=== PATIENT | male | born 2000 | race African-American/Black ===

== ENCOUNTER 2021-04-29 13:27 | Observation (INO) | payer OTHER, SELFPAY ==
[2021-04-29 18:44] VITALS: BMI 24.8
[2021-04-29 19:00] VITALS: BP 117/59; PULSE 96; RESP 18; TEMP 37.6; O2SAT 99
[2021-04-29] MEDS: PIPERACILLIN/TAZO 3.375 GM in SODIUM CHLORIDE 0.9% 100 ML 25 ML IV (19:09)
[2021-04-29] MEDS: SODIUM CHLORIDE 0.45% 1,000 ML 100 ML IV (19:09)
--- NOTE | 2021-04-29 22:52 | PC.NURSE ---
Addendum entered by Raquel Soria R.N. 04/29/21 22:55: COVID 19 results in paper chart from [facility], is negative. Original Note: Admission note: Patient arrived via stretcher from [facility] ED accompanied by EMS personnel, transferred self to inpatient bed. AxOx3, can make needs known. No recent hx of falls. C/o 3 out of 10 abdominal pain, declines intervention. Denies chest pain, SOB, or nausea/vomiting. Patient general diet at time of admission, given snacks, notified will be NPO at midnight. Low fall risk. Call light in reach.
[2021-04-30] VITALS (14 sets, daily range): BP systolic 100–148; BP diastolic 44–92; PULSE 60–87; RESP 14–20; TEMP 35.5–37.1; O2SAT 95–100; BMI 24.8
--- NOTE | 2021-04-30 | PATH_ITS ---
[facility] Accession Number: [id number] . 01 Material submitted: . appendix - APPENDIX . 02 Diagnosis: Appendix, Appendectomy: Acute appendicitis with reactive lymphoid hyperplasia. MRV 05/03/2021 1646 Local . 02 Comment: As part of routine quality control microbiology supervisor, Dr. Wan also reviewed this case and agrees with the diagnosis. . 02 Electronically signed: . Traci Andre MD, Pathologist NPI- [id number] . 01 Gross description: . The specimen is received in formalin and labeled with appendix. It consists of a 13.4 cm in length x 1.7 cm in greatest dimension intact appendix, stapled at one end. The serosa is yellow-hensley and diffusely congested. Sectioning reveals yellow-hensley focally hemorrhagic mucosa, a lumen that dilates to 1.0 cm in diameter and ventura that range from 0.2 to 0.8 cm in thickness. Supervisor Lamp [place]ades sections are submitted. . Summary of Sections: A1 = Appendix, resection margin, one piece. A2 = Appendix, bisected tip, two pieces. A3-A4 = Appendix, serially sectioned, two pieces. ([id number]) /[facility] 05/01/2021 1522 Local . 02 Pathologist provided ICD-10: K35.80 . 02 CPT . 333494 Performed at: 01 [facility] [address], [place], [place] [id number] MD Vciente Lilly MD Phone: [phone] Performed at: 02 [facility] [address] [place], [place] [id number] MD Judith Moore MD Phone: [phone]
[2021-04-30] MEDS: ACETAMINOPHEN 325 MG TABLET 650 MG PO ×4 (00:25→23:57)
[2021-04-30] MEDS: IBUPROFEN 600 MG TABLET PO ×4 (00:25→23:56)
--- NOTE | 2021-04-30 01:27 | PC.NURSE ---
Patient is alert and oriented. Breath sounds CTA with RA sat of 97%. HRR. Denied nausea. BT present and abdomen is soft, nontender. Patient denied pain at time of assessment. Voiding per urinal; denied dysuria, frequency or urgency. Moves self in bed. Gait not assessed at this time. NPO since 0000 except for meds; patient verbalizes understanding. Wearing bilateral calf SCD's. Fall risk score is low.
[2021-04-30] MEDS: PIPERACILLIN/TAZO 3.375 GM in SODIUM CHLORIDE 0.9% 100 ML 25 ML IV ×2 (03:16→11:29)
[2021-04-30] MEDS: SODIUM CHLORIDE 0.45% 1,000 ML 100 ML IV (04:38)
[2021-04-30 04:59] LABS: Add Manual Diff / Slide Review NO; Basophils Absolute Auto 0 /uL (0-100); Basophils Percent Auto 0.4 % (0-2); Eosinophils Absolute Auto 0 /uL (0-450); Eosinophils Percent Auto 0.4 % (2-4); Hematocrit 36.7 % (41-53); Hemoglobin 12.3 g/dL (13.5-17.5); Lymphocytes Absolute Auto 1600 /uL (1100-4500); Mean Corpuscular HGB Conc 33.4 % (30-36); Mean Corpuscular Hemoglobin 30.5 PG (26-34); Mean Corpuscular Volume 91.3 fL (80-100); Monocytes Absolute Auto 1100 /uL (0-900); Monocytes Percent Auto 15.4 % (3-14); Neutrophils Absolute Auto 4200 /uL (1500-7000); Neutrophils Percent Auto 60.8 % (50-75); Platelet Count 286 X10^3/uL (150-400); Red Blood Cell Count 4.02 X10^6/uL (4.5-5.9); Red Cell Distribution Width 13.6 % (11.6-14.8); White Blood Cell Count 6.8 X10^3/uL (4.5-11.0)
--- NOTE | 2021-04-30 09:54 | PM.HP.1 ---
History of Present Illness History of Present Illness Date Patient Seen: 04/30/21 Time Patient Seen: 09:55 Chief complaint: APPENDICITIS Narrative: 2 weeks of intermittent RLQ pain, sharp and cramping. Presented with persistent RLQ pain to Thursday where CT scan confirmed acute appendicitis. Anorexia, no diarrhea or emesis. Pain better now after IV antibiotics overnight. Patient History Comment: heart murmur Family & Social History Social History: household members none Safety & Behavioral: Feels Safe in Current Yes Environment Been Physically Hurt or No Threatened By a Person Suicidal Ideation Description None Suicide Plan Description No Plan Tobacco & Substance use: Tobacco type cigars Smoking Status Current some day smoker alcohol intake current alcohol intake frequency a few times a month Substance Use Type marijuana Meds Home Medications and Allergies Home Medications Medication Instructions Recorded Confirmed Type No Known Home Medications 04/29/21 04/29/21 History Allergies Allergy/AdvReac Type Severity Reaction Status Date / Time No Known Drug Allergies Allergy Verified 04/29/21 18:51 Review of Systems Review of Systems ROS: Yes All systems reviewed with the patient and are negative except as otherwise documented Exam Vital Signs (past 8 hours): - 04/30/21 08:11 04/30/21 09:43 Temperature 98.8 F Pulse Rate 87 72 Respiratory Rate 17 Blood Pressure 124/56 L Pulse Oximetry 97 99 Oxygen Delivery Method Room Air Oxygen Flow Rate 0 Const General: cooperative and healthy appearing Nutritional Appearance: average body habitus HENMT Head: normal to inspection Eyes General: appearance normal, both eyes and all related structures Neck Neck: trachea midline Chest Chest: normal inspection of the chest Resp Effort & Inspection: normal respiratory effort and able to speak in complete sentences Cardio Rate: regular rate Rhythm: regular rhythm GI Inspection: normal to inspection Palpation: soft and tender (mild RLQ tenderness to palpation) Skin General: no rashes or lesions noted Neuro General: patient alert and patient oriented x3 Cognition: normal cognition Speech: speech normal Extrem General: normal to inspection and full ROM Psych Appearance: grossly normal Judgment: judgment good Objective Labs Result Diagrams: 04/30/21 04:40 Labs: Laboratory Results - last 24 hr 04/30/21 04:40 WBC 6.8 RBC 4.02 L Hgb 12.3 L Hct 36.7 L MCV 91.3 MCH 30.5 MCHC 33.4 RDW 13.6 Plt Count 286 Neut % (Auto) 60.8 Lymph % (Auto) 23.0 L [place] % (Auto) 15.4 H Eos % (Auto) 0.4 L Baso % (Auto) 0.4 Neut # (Auto) 4200 Lymph # (Auto) 1600 [place] # (Auto) 1100 H Eos # (Auto) 0 Baso # (Auto) 0 Assessment & Plan Assessment & Plan narrative: acute appendicitis. Lap appy, IV antibiotics until then COVID-19 COVID-19 status: Negative Quality VTE Deep Vein Thrombosis/Pulmonary Embolism Present on Admission: No
--- NOTE | 2021-04-30 14:42 | CM.DANOTE ---
Young and healthy patient here for appendectomy by Dr. Hernández late this afternoon. He was on the phone when I stopped in and so conversation was pleasant but brief. His plan is to go home at discharge and denies any needs or need for CM.
--- NOTE | 2021-04-30 14:43 | SUR.OPER ---
Supine on padded OR bed, head on pillow, safety belt at thigh, left arm padded and tucked at side. Right arm secured on padded arm board <90 degrees abduction. Legs uncrossed. Padded footboard in place. Tape over blanket to secure lower legs.
[2021-04-30 14:44] LABS: COVID19 - ADMIT (NP swab/PCR) Negative (Negative)
--- NOTE | 2021-04-30 14:53 | PC.NURSE ---
Pt A& O x3. LS CTA, VSS, afebrile on RA. Pt denies abdominal pain, BS+x4. Voiding without difficulty. Pt ambulating with steady gait, tolerating antibiotics well. Reports being very hungry after having been NPO status for so long. Pt gives permission to discuss updates with medical provider from [employer] [facility] @[phone]. Pt will need a letter of restrictions, and healing time post surgery as the cruise does not provide a light duty positions and will arrange for him to have a flight home until he can be back to full duty. Endorsed to oncoming RN, and CM. Patient taken to pre op approximately 1410.
--- NOTE | 2021-04-30 15:07 | SUR.HOLD ---
Daria ROMERO OR aware that patient did not receive pre-op Acetaminophen.
[2021-04-30] MEDS: ACETAMINOPHEN IV 1,000 MG/100 ML VIAL 400 MG IV (15:30)
[2021-04-30] MEDS: BUPIVACAINE 0.25% W/ EPI 30 ML VIAL INJ (15:31)
--- NOTE | 2021-04-30 16:14 | PM.OP.1 ---
Operative Date/Time/Diagnoses Date of procedure: 04/30/21 Time of procedure: 16:14 Pre-op diagnosis: appendicitis Post-op diagnosis: same Procedure & Clinicians Procedure: lap appy Same procedure as scheduled: Yes Indications: appendicitis Surgeon: Anni Hernández Click Yes if Unassisted: Yes Anesthesia Type: General Operative Notes Findings: Acute on chronic appendicitis, suppurative stage II Closure Type: primary Specimen(s): other (Appendix) Estimated Blood Loss (mL): 10 Procedure in detail: Prep diagnosis acute appendicitis Postop diagnosis: Same Procedure: Laparoscopic appendectomy Surgeon: Elinor Hernández MD Anesthetic: General with ET tube intubation along with local Findings: Acute on chronic appendicitis. Stage II suppurative Procedure: Patient is placed in a supine position. Prepped and draped in a sterile fashion. Infraumbilical port site was placed using an open technique and a 12 mm port. Insufflation began all other ports were placed under direct vision including a 5 mm port in the suprapubic area and a 5 mm port in left lateral abdomen. Appendix was identified and lifted cephalad for exposure. Blunt dissection along with electrocautery was used to separate the appendix from the chronic inflammation that welded to the lateral attachments as well as the terminal ileum. The mesentery of the appendix was then taken down with electrocautery. The base of the appendix was healthy in nature and a blue load ION stapling device was used for amputation. The amputated appendix was placed into an Endo-Catch bag and pulled through the infraumbilical port site intact. There was no bleeding. I then removed the specimen prior to suctioning the physiologic fluid from the pelvis along with any residual blood associated with the operative site. We then removed all ports and began closure. Closure consisted of interrupted 0 Vicryl for fascial closure. Skin was closed a running 4-0 Vicryl. Steri-Strips and sterile dressings were placed. Patient was awakened, extubated, taken to recovery room in stable condition. Needle, instrument, sponge counts were all correct. Of note due to the size of the appendix 2 number 45 staplers were used for amputation. Blood loss: 10 mL Specimen: Appendix Complications: none Post-operative Condition: stable Disposition: PACU
--- NOTE | 2021-04-30 17:38 | PC.NURSE ---
Patient back on unit after surgery around 1700. Patient resting comfortably with no pain, nausea, vomiting. 3 lap sites all with 2x2s that are CDI. VS stable at 97.6F, 67 bpm, 15 resp, 125/61, and 98% on RA. Patient requested applesauce and apple juice which was well tolerated. Will advance diet as tolerated.
[2021-04-30] MEDS: HYDROCODONE/ACET 5/325 TABLET 1 TAB PO (18:42)
[2021-04-30] MEDS: HYDROMORPHONE 0.5 MG INJ IV (20:11)
[2021-05-01 00:17] VITALS: BP 118/66; PULSE 53; RESP 16; TEMP 36.1; O2SAT 99
--- NOTE | 2021-05-01 00:54 | PC.NURSE ---
Patient is alert and oriented. Breath sounds CTA with RA sat of 99%. HRR but bradycardic at 53 bpm. Denied nausea. BT hypoactive and denied any flatus as yet following surgery. Abdomen is tender in RLQ and stated pain at 3/10; medicated with scheduled Tylenol + Ibuprofen. Lap sites x 3 to abdomen covered with gauze; CDI. Voiding per urinal and denied dysuria, frequency or urgency. Able to move self in bed. Gait not assessed; discussed importance of getting up and ambulating but patient declined at time of assessment. Refusing SCD's tonight; demonstrated understanding of ankle waving. Fall risk score is low.
[2021-05-01 05:41] VITALS: BP 121/70; PULSE 55; RESP 16; TEMP 36.2; O2SAT 100
[2021-05-01] MEDS: ACETAMINOPHEN 325 MG TABLET 650 MG PO ×2 (05:49→11:05)
[2021-05-01] MEDS: IBUPROFEN 600 MG TABLET PO ×2 (05:49→11:05)
--- NOTE | 2021-05-01 07:31 | PM.EVENT ---
Event Note Event Note: To Whom it may concern: Pj Morocho had recent surgery. He requires a minimum of 3 days rest and then could return to light duty for 4 weeks. Light duty consist of no heavy lifting of more than 15 lbs. Date of surgery 04/30/2021. Sincerely, Elinor Hernández MD Discharge Data Data Completed and Pending Labs on day of discharge: Labs from last 24 hours 04/30/21 13:34 SARS-CoV-2 (PCR) Negative
[2021-05-01 07:50] VITALS: BP 124/73; PULSE 62; RESP 16; TEMP 36.2; O2SAT 99
--- NOTE | 2021-05-01 08:41 | CM.DPC ---
DCP Discharge Home Per Surgeon, pt is medically stable to d/c home today with no identified barriers to discharge and limit amount of weight to lift and few days off before starting back to work. Per RN, pt has pain controlled, has been voiding, and able to ambulate independently and no concerns. Plan: Patient to d/c home today via POV and no identified d/c planning needs. VANIA Loredo
--- NOTE | 2021-05-01 10:11 | PC.NURSE ---
Patient has 3 small incisions that are covered and cdi. Patient states that he has some cramping at times, he ambulated in the halls and will get his ibuprofen around 11am. BT are positive x4, and patient is passing gas. He will be discharged home today, Dr. Hernández has not been into see patient as of yet. Patient states that he will need a note to bring back to work, explaining his stay in the hospital.
[2021-05-01] MEDS: SODIUM CHLORIDE 0.9% FLUSH 10 ML IV (11:06)
--- NOTE | 2021-05-23 16:49 | P.DS_ITS ---
History of Present Illness History of Present Illness Date Patient Seen: 06/01/21 Chief complaint: APPENDICITIS Narrative: 2 weeks of intermittent RLQ pain, sharp and cramping. Presented with persistent RLQ pain to [facility] where CT scan confirmed acute appendicitis. Anorexia, no diarrhea or emesis. Pain better now after IV antibiotics overnight. Discharge Providers Provider Date of admission: 04/29/21 13:27 Discharge Date: 05/02/21 Consults: none Discharge provider: Anni Hernández MD Summary Hospital Course Discharge Diagnosis: acute appendicitis Hospital Course: lap appy Status at Discharge Cognitive/behavioral status at discharge: at baseline, oriented Functional status at discharge: independent ambulation Overall status at discharge: patient is progressing back to baseline Time Spent with Patient Time spent: Less than 30 minutes Exam Vital Signs (past 8 hours): Oxygen Delivery Method Room Air Oxygen Flow Rate 0 Objective Labs Result Diagrams: 04/30/21 04:40 [facility] Medical History (Updated 04/30/21 @ 14:43 by Mariella Hodges RN) Heart murmur Social History household members: none Smoking Status: Current some day smoker alcohol intake: current Discharge Assessment & Plan Assessment and Plan Assessment: S/p lap appy, no complications Plan of Treatment: no heavy lifting for 4 weeks Discharge Plan Discharge Plan Patient Disposition: Home Provider Discharge Comment: can discharge anytime. [facility] Discharge orders & Medications Prescriptions: New oxycodone 5 mg Tablet 5 mg PO Q4HR PRN (Reason: Pain, Moderate (4-6)) Qty: 15 RF: 0 Follow up/Referrals: Anni Hernández MD [Physician] - Diet/Activity/Treatments Diet: Diet as Tolerated Activity: no heavy lifting greater than 15lbs for 2-4 weeks Skin/Wound/Dressing Care Dressing: remove outer dressing in 48 hrs, remove steri strips in 10 days Visit Report/Discharge Packet Instructions: [place] [facility] [place] [facility] [place], DI for an Appendectomy, Appendectomy -- Laparoscopic Surgery, Oxycodone Discharge Data Attending Provider: Anni Hernández Quality VTE Deep Vein Thrombosis/Pulmonary Embolism Present on Admission: No
== END 2021-05-01 13:58 | disposition home or self-care (01) ==
PROVIDERS: Admitting Provider Surgery; Referring Provider Surgery; Visit Provider Surgery
PROC: 0DTJ4ZZ Resection of Appendix, Percutaneous Endoscopic Approach (ICD-10-PCS; CPT 44970; principal; 2021-04-30 15:00)
DX: K35.891 Other acute appendicitis without perforation, with gangrene (principal); Z20.822 Contact with and (suspected) exposure to COVID-19
CPT/HCPCS: 44970; 36415; 85025; 87635; 99219; C9803; G0378; G0379; J0131; J0330; J1100; J1170; J2250; J2405; J2543; J2704; J3010; J7050